=== PATIENT | female | born 2005 | race Two or more races ===

== ENCOUNTER 2025-05-13 10:06 | Outpatient (AMB) | payer MEDICAID, SELFPAY ==
[2025-05-13 10:21] VITALS: BP 115/63; PULSE 98; RESP 16; TEMP 36.3; O2SAT 98; BMI 21.2
--- NOTE | 2025-05-13 10:21 | AMB.OBINITIA ---
Vital Signs 05/13/25 10:21 Height 1.6 m Height Method Stated Weight 54.431 kg Weight Measurement Method Standing Scale BMI 21.2 BP 115/63 Blood Pressure Source Automatic Cuff Blood Pressure Location Left Upper Arm Position Sitting Respiration 16 Pulse 98 Pulse Source Monitor Temp 97.3 F Temp Source Oral Pulse Oximetry (%) 98 Oxygen Delivery Method Room Air Allergies/Home Meds Allergies & Medications Allergies No Known Allergies Allergy (Verified 05/13/25 10:22) Medication Reconciliation clotrimazole 1 % vaginal cream (Gyne-Lotrimin 7) 1 appful vaginal QHS #45 grams 05/13/25 [Rx] Intake Visit Data Collection New Patient or Established: Established Patient (seen at [facility] within 3 years) Reason for Visit:: INITIAL CARE Seen by Clinical Staff ONLY (RN/MA): No Turkey Roll Maker Required: No Do You Feel Safe at Home: Yes Authorities Contacted: N/A PCP or OBGYN visit in last 3 months: Yes Hx Now: Yes Are you currently on any form of Control: No Last menstrual period: 12/11/24 Pain Present Currently: No Pain Scale Used: Barbour-Tolentino/Numerical Pain scale:: 0 Smoking Status Smoking Status: Never smoker Questionnaires Covid-19 Vaccine Questionnaire Has patient been vacinated for Covid-19 Have you been vacinated for Covid-19: No PHQ-9 PHQ-2 Over the last 2 weeks, how often have you been bothered by any of the following problems? 1. Little interest or pleasure in doing things: not at all 2. Feeling down, depressed, or hopeless: not at all Total score: 0 PHQ-9 3. Trouble falling or staying asleep, or sleeping too much: Not at all 4. Feeling tired or having little energy: Not at all 5. Poor appetite or overeating: Not at all 6. Feeling bad about yourself - or that you are a failure or have let yourself or your family down: Not at all 7. Trouble concentrating on things, such as reading the newspaper or watching television: Not at all 8. Moving or speaking so slowly that other people could have noticed? - Or the opposite - being so fidgety or restless that you have been moving around a lot more than usual: not at all 9. Thoughts that you would be better off or of hurting yourself in some way: Not at all Total score: 0 Source: Developed by Drs. Bran Gabriel, Merary Romero, Bony Arce and colleagues, with an educational anthony from [employer]. Depression screen completed yes Social History Living Situation History Marital Status: Life Partner Lives With: Family Housing: Apartment Tobacco History Smoking Status: Never smoker Second Hand Smoke Exposure: No Alcohol History Alcohol Intake: Former Alcohol Intake Frequency: holidays/special occasions only Domestic Abuse History Do You Feel Safe at Home: Yes History of Present Illness HPI Narrative 20-year-old 2 para 1 for OBI. Patient had a verification at [facility]. She has no dates. She thinks maybe December 11, 2024. This gives EDC September 17, 2025. Reports movement. She denies leaking, bleeding, contractions. Patient denies any existence past medical history. She denies social habits and denies surgeries. She has some vaginal discharge and itching. 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 Patient needs a Pap today. She has poor dates, unsure of her.. Her last. She thinks December 11, 2024. This gives due date September 17, 2025. Patient denies social habits. Denies surgery. Denies chronic illness. She has some slight vaginal itching. When I looked inside she had positive yeast in the vagina was red. Reports movement. Denies leaking, bleeding, contractions Pap smear today .schedule OB sono at [facility]. Patient is unable to go to [place]. OB panel today with NIPT and carrier screen, A1c and 1 hour GTT. We did a NuSwab today for positive yeast. 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 And return in 4 weeks for OB check Menstrual History Menstrual reliability: definite Flow: normal Menstrual regularity: regular Monthly: Yes Age at menarche: 11 On control pills at conception: No Associated symptoms (LMP): Reports nausea, vomiting, fatigue and breast tenderness OB History : 2 Para: 1 # of Living Children: 1 Delivery History 1st : Child's name: RAISSA date: 05/29/24 sex: female Gestational age at delivery (weeks): 41 Delivery type: vaginal Delivery complications: NONE History of depression before or after : No Infection History & Risk Evaluation History of STDs: none Genetic Screening & History Genetic Screening/Teratology Counseling - Includes patient, baby's father, or anyone in either family with: 1. Patient's age 35 years or older as of estimated date of delivery: No 2. Thalassemia (Lebanese, Mohawk, Mediterranean, or Background); MCV less than 80: No 3. Neural Tube Defect (Meningomyelocele, Spina Bifida, or Anencephaly): No 4. Congenital Heart Defect: No 5. Down Syndrome: No 6. Héctor-Sachs (Ashkenazi Methodist, Cajun, Honduran Angolan): No 7. Cheng Disease (Ashkenazi Methodist): No 8. Familial Dysautonomia (Ashkenazi Methodist): No 9. Sickle Cell Disease or Trait (): No 10. Hemophilia or other blood disorders: No 11. Muscular Dystrophy: No 12. Cystic Fibrosis: No 13. Sanjay's Chorea: No 14. Mental Retardation/Autism: No 15. Other inherited genetic or chromosomal disorder: No 16. Maternal Metabolic Disorder (EG,TYPE 1 Diabetes, PKU): No 17. Patient or baby's father had a child with defects not listed above: No 18. Recurrent loss or a stillbirth: No 19. Medications (including supplements, vitamins, herbs or otc drugs)/illicit/recreational drugs/alcohol since last menstrual period: No 20. Any other: No Infection History 1. Live with someone with TB or exposed to TB: No 2. Rash or viral illness since last menstrual period: No 3. Hepatitis B,C: No Other (see comments) Source: [employer] Review of Systems Constitutional Constitutional: Reports fatigue Gastrointestinal Gastrointestinal: Reports nausea and Reports vomiting Endocrine Endocrine: Reports fatigue Office Procedures OBC Clinic LOC & Office Proc's Nursing/Assessment Patient Status: Established Patient OB Clinic Nursing Assessment: Medication Reconciliation, Update PMH in EMR and Vital Signs OB Clinic Coordination of Care: Complex Care and Chronic Disease 1-5, Consent,records obtained, informed consent, Education Simp Pt/Fam, 1 Ins Authorization, Lab and Imaging orders, Results/Orders obtained and Staff clarify orders Special Needs: Heart tones Miscellaneous Interventions: Pelvic/Pap Smear Set up Established Patient Charge Established Patient Point Assignment: 170 Established Patient Point Charge: EP Level 5 (160-above) Assessment & Plan Diagnosis / Problem List (1) Encounter for supervision of high risk in second trimester, antepartum: Status: Acute (2) Vaginitis: Status: Acute Qualifiers: Chronicity: acute Qualified Code(s): N76.0 - Acute vaginitis Plan Pap today. NuSwab. SIGNAL CIRCUIT DESIGNER Lotrimin x 7. Discussed comfort measures for vaginitis. Patient is unable to go to [place] so I scheduled an ultrasound at [facility]. OB panel today with 1 hour, A1c, and RPR. Increase fluids. NIPT and carrier screens were also done. Return in 4 weeks OB check Additional Plan Follow Up: 4 Weeks (obc) SKEINS YARN EXAMINER: Papsmear Pap Smear Procedure Pre-op diagnosis general: pap Post-op diagnosis procedure note: Same Chaparone in room during procedure?: No Procedure position: lithotomy (dorsal) Speculum inserted, cervix visualized: Yes (no inflamation, mucous) Cervical appearance: normal Collection method: broom type device Specimen placed in liquid-based cytology medium: Yes Complications: No Patient tolerated procedure well: Yes (no bleeding,no cramps) Follow up pending results: appt for results review (at next appointment in 4 week) Papsmear completed: yes
== END 2025-05-13 11:01 | disposition home or self-care (01) ==
LOC: HODSOBC 10:06
PROVIDERS: Supervising Provider Advanced Practice Midwife; Visit Provider Advanced Practice Midwife
DX: O09.892 Supervision of other high risk pregnancies, second trimester (principal); O23.592 Infection of other part of genital tract in pregnancy, second trimester; N76.0 Acute vaginitis; Z3A.21 21 weeks gestation of pregnancy
CPT/HCPCS: 99215; G0463

== ENCOUNTER 2025-07-08 09:07 | Outpatient (AMB) | payer MEDICAID, SELFPAY ==
[2025-07-08 09:27] VITALS: BP 113/72; PULSE 79; RESP 16; TEMP 36.6; O2SAT 98; BMI 23.6
--- NOTE | 2025-07-08 09:27 | OBCLNT_ITS ---
Vital Signs 07/08/25 09:27 Height 1.6 m Height Method Stated Weight 60.328 kg Weight Measurement Method Standing Scale BMI 23.6 BP 113/72 Blood Pressure Source Automatic Cuff Blood Pressure Location Left Upper Arm Position Sitting Respiration 16 Pulse 79 Pulse Source Monitor Temp 97.8 F Temp Source Oral Pulse Oximetry (%) 98 Oxygen Delivery Method Room Air Allergies/Home Meds Allergies & Medications Allergies No Known Allergies Allergy (Verified 07/08/25 09:28) Medication Reconciliation clotrimazole 1 % vaginal cream (Gyne-Lotrimin 7) 1 appful vaginal QHS #45 grams 05/13/25 [Rx Confirmed 07/08/25] ferrous sulfate 325 mg (65 mg iron) tablet 325 mg PO BID #60 tabs 07/08/25 [Rx] Immunizations Immunizations Flu Vaccine in the Last 12 Months: Yes Date of most recent flu vaccination: 07/08/25 Flu Vaccine Exclusion Criteria: Already Received Care OB Visit Log OB Flowsheet Initial Weight: Not Recorded Date -?-?-?-?-?-?-?-?-?-?-?-?- EGA Weight BP Alb Glu CTX Pres Fundal ht FHR Mov Dilation Station Effacement Hx Notes Visit Note 05/13/25 -?-?-?-?-?-?-?-?-?-?-?-?- 21w 6d 54.431 kg 115/63 absent cephalic 24 146 active 20-year-old 2 para 1 for OBI. Patient needs a Pap today. She has poor dates, unsure of her.. Her last. She thinks December 11, 2024. This gives due date September 17, 2025. Patient denies social habits. Denies surgery. Denies chronic illness. She has some slight vaginal itching. When I looked inside she had positive yeast in the vagina was red. Reports movement. Denies leaking, bleeding, contractions Pap smear today .schedule OB sono at [facility]. Patient is unable to go to [place]. OB panel today with NIPT and carrier screen, A1c and 1 hour GTT. We did a NuSwab today for positive yeast. 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 And return in 4 weeks for OB check 07/08/25 -?-?-?-?-?-?-?-?-?-?--?-?- 29w 6d 60.328 kg 113/72 absent unknown 30 154 active No OB complaints. Discussed. Patient stopped work. Last reports good movement. Denies leaking, bleeding, contractions Discussed labs. Flu and Tdap today. Disability starting today on July 08, 2025. Discussed labor precautions. And return in 3 weeks OB check Discussed labs. Flu and Tda p today. Disability starting today on July 08, 2025. Discussed labor precautions. And return in 3 weeks OB check. f/u growth at 32 week SARAI Calculator Estimated Delivery Date Method Current WG Current Estimate 09/17/25 LMP (Uncertain) 29w 6d Other Estimates 09/12/25 Ultrasound #1 30w 4d 09/17/25 Manual 29w 6d final sarai:. EFW:59% Notes Visit Date: 07/08/25 Last Updated by: Mercy Mueller CNM HPV/ASCUS, +APTIMS:repap post , O+,abs-,ror;;nr, rub NI, HBSAG-,HIV-HC-, GC/CT-, NIPT-, carrier-, 1 hr GTT_, A1c: 4.7 sono 05/22/25: 23w6,SARAI: 09/12/25 Visit Date: 05/13/25 Last Updated by: Mercy Mueller CNM 20 yo , poor dates, 12/11/24. EDC: 09/17/25 Office Procedures OBC Clinic LOC & Office Proc's Nursing/Assessment Patient Status: Established Patient OB Clinic Nursing Assessment: Medication Reconciliation, Update PMH in EMR and Vital Signs OB Clinic Coordination of Care: Complex Care and Chronic Disease 1-5, Consent,records obtained, informed consent, Education Simp Pt/Fam, 1 Ins Authorization, Lab and Imaging orders, Results/Orders obtained and Staff clarify orders Special Needs: Heart tones Established Patient Charge Established Patient Point Assignment: 150 Established Patient Point Charge: EP Level 4 (120-155) Injection/Vaccine Admin Admin 1st Vaccine: Yes Admin 2nd Vaccine: Yes Immunizations flu vac ts (6mos up)-PF 45 mcg(15mcg x3)/0.5 mL IM syringe Performing Provider: Mercy Mueller CNM Performing Location: [facility] Administered by: Holly Walker MA on 07/08/25 11:23 Dose Route Admin Location Dispensed Lot Number Expiration Date Pack age [facility] Materials Associate 0.5 mL IM Right Deltoid 0.5 mL [id number] 01/26/26 [id number] GLAXOSMITHKLINE VIS Given Date VIS Provided VIS Publication Date 07/08/25 Single Vaccine 24 Eligibility Eligibility Date Funding Source [facility] diphth,pertus(acell),tetanus 2.5 Lf unit-8 mcg-5 Lf/0.5mL IM syringe Performing Provider: Mercy Mueller CNM Performing Location: [facility] Administered by: Holly Walker MA on 07/08/25 11:23 Dose Route Admin Location Dispensed Lot Number Expiration Date Pack age [facility] Materials Associate 0.5 mL IM Right Deltoid 0.5 mL [id number] 10/24/27 64059-401-40 [id number] GLAXOSMITHKLINE VIS Given Date VIS Provided VIS Publication Date 07/08/25 Single Vaccine 24 Eligibility Eligibility Date Funding Source Public [facility] Assessment & Plan Diagnosis / Problem List (1) Encounter for supervision of high risk in second trimester, antepartum: Status: Acute (2) Encounter for supervision of high risk in third trimester, antepartum: Status: Acute Plan Tdap and flu vaccine today. Reviewed the labs. Refill prenatals. Start iron twice a day. Discussed labor precautions. Return in 2 weeks OB check Additional Plan Follow Up: 2 Weeks (obc)
== END 2025-07-08 09:40 | disposition home or self-care (01) ==
PROVIDERS: Supervising Provider Advanced Practice Midwife; Visit Provider Advanced Practice Midwife
DX: O09.93 Supervision of high risk pregnancy, unspecified, third trimester (principal); Z3A.29 29 weeks gestation of pregnancy; Z23 Encounter for immunization
CPT/HCPCS: 90471; 90472; 90686; 90715; 99214; G0463; J9060

== ENCOUNTER 2025-07-29 09:03 | Outpatient (AMB) | payer MEDICAID, SELFPAY ==
--- NOTE | 2025-07-29 09:14 | AMB.OBPNC ---
Vital Signs 07/29/25 09:19 Height 1.6 m Height Method Stated Weight 60.101 kg Weight Measurement Method Standing Scale BMI 23.4 BP 103/65 Blood Pressure Source Automatic Cuff Blood Pressure Location Right Upper Arm Position Sitting Respiration 16 Pulse 79 Pulse Source Monitor Temp 96.4 F L Temp Source Temporal Artery Scan Pulse Oximetry (%) 98 Oxygen Delivery Method Room Air Allergies/Home Meds Allergies & Medications Allergies No Known Allergies Allergy (Verified 07/29/25 09:20) Medication Reconciliation clotrimazole 1 % vaginal cream (Gyne-Lotrimin 7) 1 appful vaginal QHS #45 grams 05/13/25 [Rx Confirmed 07/29/25] ferrous sulfate 325 mg (65 mg iron) tablet 325 mg PO BID #60 tabs 07/08/25 [Rx Confirmed 07/29/25] Immunizations Immunizations Flu Vaccine in the Last 12 Months: Yes Date of most recent flu vaccination: 07/08/25 Flu Vaccine Exclusion Criteria: Already Received Care OB Visit Log OB Flowsheet Initial Weight: Not Recorded Date <del>?</del> EGA Weight BP Alb Glu CTX Pres Fundal ht FHR Mov Dilation Station Effacement Hx Notes Visit Note 05/13/25 <del>?</del> 21w 6d 54.431 kg 115/63 absent cephalic 24 146 active 20-year-old 2 para 1 for OBI. Patient needs a Pap today. She has poor dates, unsure of her.. Her last. She thinks December 11, 2024. This gives due date September 17, 2025. Patient denies social habits. Denies surgery. Denies chronic illness. She has some slight vaginal itching. When I looked inside she had positive yeast in the vagina was red. Reports movement. Denies leaking, bleeding, contractions Pap smear today .schedule OB sono at [facility]. Patient is unable to go to [place]. OB panel today with NIPT and carrier screen, A1c and 1 hour GTT. We did a NuSwab today for positive yeast. 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 And return in 4 weeks for OB check 07/08/25 <del>?</del> 29w 6d 60.328 kg 113/72 absent unknown 30 154 active No OB complaints. Discussed. Patient stopped work. Last reports good movement. Denies leaking, bleeding, contractions Discussed labs. Flu and Tdap today. Disability starting today on July 08, 2025. Discussed labor precautions. And return in 3 weeks OB check Discussed labs. Flu and Tdap today. Disability starting today on July 08, 2025. Discussed labor precautions. And return in 3 weeks OB check. f/u growth at 32 week 07/29/25 <del>?</del> 32w 6d 60.101 kg 103/65 absent cephalic 32 135 active Reports good movement. Denies leaking bleeding cramping. Discussed labor precautions. Kick count twice a day. Discussed danger signs and symptoms and return in 2 weeks OB check SARAI Calculator Estimated Delivery Date Method Current WG Current Estimate 09/17/25 LMP (Uncertain) 32w 6d Other Estimates 09/12/25 Ultrasound #1 33w 4d 09/17/25 Manual 32w 6d final sarai:09/17/25. EFW:59% Notes Visit Date: 07/08/25 Last Updated by: Mercy Mueller CNM HPV/ASCUS, +APTIMS:repap post , O+,abs-,ror;;nr, rub NI, HBSAG-,HIV-HC-, GC/CT-, NIPT-, carrier-, 1 hr GTT_, A1c: 4.7 sono 05/22/25: 23w6,SARAI: 09/12/25 Visit Date: 05/13/25 Last Updated by: Mercy Mueller CNM 20 yo , poor dates, 12/11/24. EDC: 09/17/25 Office Procedures OBC Clinic LOC & Office Proc's Nursing/Assessment Patient Status: Established Patient OB Clinic Nursing Assessment: Medication Reconciliation, Update PMH in EMR and Vital Signs OB Clinic Coordination of Care: Complex Care and Chronic Disease 1-5, Consent,records obtained, informed consent, Education Simp Pt/Fam, 1 Ins Authorization, Lab and Imaging orders, Results/Orders obtained and Staff clarify orders Special Needs: Heart tones Established Patient Charge Established Patient Point Assignment: 150 Established Patient Point Charge: EP Level 4 (120-155) Assessment & Plan Diagnosis / Problem List (1) Encounter for supervision of high risk in third trimester, antepartum: Status: Acute Plan Discussed labor precautions. Kick count twice a day. Discussed danger signs symptoms and ER precautions. Return in 2 weeks OB check Additional Plan Follow Up: 2 Weeks (obc)
[2025-07-29 09:19] VITALS: BP 103/65; PULSE 79; RESP 16; TEMP 35.8; O2SAT 98; BMI 23.4
== END 2025-07-29 09:32 | disposition home or self-care (01) ==
LOC: HODSOBC 09:03
PROVIDERS: Supervising Provider Advanced Practice Midwife; Visit Provider Advanced Practice Midwife
DX: O09.93 Supervision of high risk pregnancy, unspecified, third trimester (principal); Z3A.32 32 weeks gestation of pregnancy
CPT/HCPCS: 99214; G0463